=== PATIENT | female | born 1990 | race Two or more races ===

== ENCOUNTER 2018-09-21 07:59 | Inpatient (IN) | payer OTHER ==
[2018-09-21] MEDS ORDERED: Buffered Lidocaine 1% SYRIN* 1 ML/SYRINGE INTRADERM ONE (08:08)
--- NOTE | 2018-09-21 08:14 | HP ---
General Information - Reason for Visit posterm / pt 40 week s and 6 days - General Information Maternal Age: 28 Grav: 1 Para: 0 Estimated Due Date: 09/15/18 Determined By: LMP Gestational Age in Weeks/Days: 40 weeks 6 days Past Medical History Delivery History: See Records Pertinent Past Medical History: Non-Contributory Pertinent Past Surgical History: None Pertinent Family History: Non-Contributory - Antepartal Records Antepartal Records: Reviewed, Uncomplicated Review of Systems Constitutional: Comfortable Genitourinary: No Bleeding, No Leaking Fluid Musculoskeletal: No Complaint Movement: Normal Exam Allergies/Adverse Reactions: Allergies No Known Allergies Allergy (Verified 03/22/16 19:53) - Exam Breast: Breast Exam Deferred Extremities: No Edema Heart: Normal Rhythm/Heart Sounds HEENT: No Significant Findings Lungs: Clear Bilaterally Rectal: Rectal Exam Deferred Reflexes: DTR 2+ Targeted Exam Findings See L&D Outpatient Visit Provider Note for Findings: N/A Estimated Weight: 7.9 lbs Effacement: 80% Station: -1 Presenting Part: Vertex Membrane Status: Intact EFM Findings - External Monitor Findings Baseline Heart Rate: 145 External Monitor Findings: Accelerations Present, Variability Moderate Contractions: Regular, Mild, 45-90 Seconds - contractini too much to give cytotec Assessment/Plan - Assessment post dates for elective induction - Obstetrical Risk Factors Obstetrical Risk Factors: Post-Dates - Plan Plan: Cervical Ripening Plan Comment: Since pt diana frequently . option of pitocin augmentation and home with observation. Cannot examine effectively due to pt ability to tolerate exam since we do not know how long she has been diana and is not quite 41 weeks suggest home with warnings
[2018-09-21] MEDS ORDERED: Misoprostol TAB* 100 MCG PO ONE (08:26)
== END 2018-09-21 09:45 | disposition home or self-care (01) | DRG 833 ==
LOC: MCHOBOUT 07:59 → MCHOB 08:20
PROVIDERS: ADMIT Obstetrics & Gynecology; ATTEND Obstetrics & Gynecology
PROC: 4A1HXCZ Monitoring of Products of Conception, Cardiac Rate, External Approach (ICD-10-PCS; principal; 2018-09-21)
DX: O48.0 Post-term pregnancy (principal); Z3A.40 40 weeks gestation of pregnancy
CPT/HCPCS: S0191

== ENCOUNTER 2018-09-22 11:51 | Inpatient (IN) | payer OTHER ==
[2018-09-22 15:01] LABS: Hematocrit 35 % (33-41); Hemoglobin 11.5 g/dL (12.0-16.0); Mean Corpuscular HGB Conc 33 g/dL (31-36); Mean Corpuscular Hemoglobin 28 pg (27-31); Mean Corpuscular Volume 86 fL (80-97); Mean Platelet Volume 9.1 fL (7.4-10.4); Platelet Count 253 10^3/uL (150-450); Red Blood Count 4.09 10^6 /uL (3.70-4.87); Red Cell Distribution Width 14 % (10.5-15); White Blood Count 11.6 10^3/uL (3.5-10.8)
[2018-09-22] MEDS ORDERED: Lactated Ringers 1000 ML Bag* 1,000 ML IV ONE ×2 (15:12→15:52)
[2018-09-22] MEDS ORDERED: Buffered Lidocaine 1% SYRIN* 1 ML/SYRINGE INTRADERM ONE (15:12)
[2018-09-22] MEDS ORDERED: OBEPIDURAL* 250 ML EPIDURAL ONE (15:15)
--- NOTE | 2018-09-22 15:29 | HP ---
General Information - Reason for Visit labor. Ctx started yesterday but were mild. Woke up a few times overnight with ctxs - now getting more uncomfortable. Was planning induction anyways. - General Information Maternal Age: 28 Grav: 1 Para: 0 SAB: 0 IEA: 0 Estimated Due Date: 09/15/18 Determined By: LMP Gestational Age in Weeks/Days: 41.0 Maternal Blood Type and Rh: B Positive - Results this Serology/RPR Result: Non-Reactive Rubella Result: Immune HBsAg Result: Negative HIV Result: Negative GBS Culture Result: Negative Past Medical History Pertinent Past Medical History: Non-Contributory Pertinent Past Surgical History: None Pertinent Family History: Non-Contributory - Antepartal Records Antepartal Records: Reviewed, Uncomplicated Review of Systems Constitutional: Comfortable CV Complaint: No Respiratory: Shortness of Breath: No Gastrointestinal: No Nausea/Vomiting Genitourinary: No Leaking Fluid, Spotting Musculoskeletal: Contractions - irregular Movement: Normal Exam Allergies/Adverse Reactions: Allergies No Known Allergies Allergy (Verified 03/22/16 19:53) Vital Signs 09/22/18 12:00 Temperature 98.5 F Pulse Rate 84 Respiratory 20 Rate Blood Pressure 115/67 (mmHg) O2 Sat by Pulse 100 Oximetry Lab Values - Entire Visit: Laboratory Tests 09/22/18 14:40 WBC 11.6 H RBC 4.09 Hgb 11.5 L Hct 35 MCV 86 MCH 28 MCHC 33 RDW 14 Plt Count 253 MPV 9.1 - Measurements Height: 5 ft 1 in Weight: 149 lb Weight in lbs: 149.761717 Body Mass Index (BMI): 28.1 Pre- Weight: 120 lb Weight Gained This : 29 lbs and 0 ozs - Exam Breast: Breast Exam Deferred Extremities: No Edema Heart: Normal Rhythm/Heart Sounds HEENT: No Significant Findings - Abdominal Exam Abdomen Exam: Non-Tender - Ultrasound/Biophysical Profile Ultrasound Status: Not Done Targeted Exam Findings Cervical Exam: 4cm Effacement: 90% Station: 0 Presenting Part: Vertex Membrane Status: Bulging EFM Findings - External Monitor Findings Baseline Heart Rate: 145 External Monitor Findings: Accelerations Present, No Pattern of Variable or Late Decelerations, Variability Moderate, Baseline Stable Contractions: None Assessment/Plan - Assessment @41wks in labor. GBS neg. - Obstetrical Risk Factors Obstetrical Risk Factors: Post-Dates - Plan Plan: Admit - Anticipate Vaginal Delivery
[2018-09-22] MEDS ORDERED: Bupivacaine 0.25% SDV PF* 10 ML VIAL INJ ONE (15:31)
[2018-09-22] MEDS ORDERED: EPHEDrine (Pressors)* 50 MG/ML VIAL IV PUSH PRN (15:52)
[2018-09-22] MEDS ORDERED: Famotidine TAB* 20 MG PO PRN (15:52)
[2018-09-22] MEDS ORDERED: Phenylephrine 40 MCG/ML SYRINGE IV PUSH PRN (15:52)
[2018-09-22] MEDS ORDERED: Sodium Citrate/Citric Acid* 15 ML UDC PO PRN (15:52)
[2018-09-22] MEDS ORDERED: Lactated Ringers 1000 ML Bag* 1,000 ML IV SCH ×2 (16:00)
[2018-09-22] MEDS ORDERED: OBEPIDURAL* 250 ML EPIDURAL SCH (16:00)
[2018-09-22] MEDS ORDERED: Lidocaine 2% JELLY* 6 ML JELLY TOPICAL ONE (18:00)
--- NOTE | 2018-09-22 18:10 | PN ---
Progress Note - Progress Note Date of Service: 09/22/18 Note: Cx: AL/0 station. AROM - clear fluid. Pt comfortable with epidural.
[2018-09-22] MEDS ORDERED: Oxytocin in LR* 20 UNITS/1,000 ML BAG IVPB ONE (20:57)
[2018-09-23] MEDS ORDERED: Acetaminophen TAB* 325 MG PO PRN (01:47)
[2018-09-23] MEDS ORDERED: Dibucaine 1% 28.35 GM TUBE PR PRN (01:47)
[2018-09-23] MEDS ORDERED: Witch Hazel PAD* JAR TOPICAL PRN (01:47)
[2018-09-23] MEDS ORDERED: Glycerin ADULT SUPP PR PRN (01:47)
--- NOTE | 2018-09-23 01:57 | PROCNOTE ---
[facility] OB: Delivery Note - Delivery A Date of : 09/23/18 Time of : 00:43 [place] Weight at : 7 lb 6 oz Score 1 Minute: 7 Score 5 Minutes: 9 Gestational Age in Weeks and Days at Delivery: 41 Weeks and 1 Days Delivery Method: Spontaneous Vaginal Labor: Spontaneous Did Patient attempt ?: N/A, No Previous Amniotic Fluid: Clear Estimated Blood Loss: 200 Anesthesia/Analgesia: CEI for Labor Delivered By: Grace Guerra - Nursery Level of Nursery: Regular/Bedside - Perineum Perineal Injury: 3rd Degree Extension Perineal Repair: By Delivering Practioner - Events Delivery Events of Note: Pitocin Only After Delivery - Additional Delivery Notes Additional Delivery Notes: Pt was originally scheduled for induction but was diana on arrival and progressed spontaneously into labor. She received an epidural and progressed to fully dilated. She pushed ~2.5hrs to deliver the 's head in direct OA position followed by the shoulders and the rest of the body. The baby was placed on mom's abdomen. After >1 min the cord was milked towards the baby, then clamped x2 and cut. The placenta delivered with gentle cord traction and fundal massage. It appeared intact with a 3 vessel cord. A complete 3rd degree laceration was noted. The sphincter muscle was reapproximated overlapping with 4 interrupted sutures of 3-0 vicryl. Then the rest of the repair was done in the usual fashion with 3-0 vircyl rapide. There was a small skin defect near the anus repaired with figure of eight 3-0 vicryl. Rectal exam confirmed no 4th degree extension. At completion of procedure there was good hemostasis and the fundus was firm. Mom and baby stable.
[2018-09-23] MEDS ORDERED: Lactated Ringers 1000 ML Bag* 1,000 ML IV SCH (02:00)
[2018-09-23] MEDS ORDERED: Lidocaine 1% INJ* 10 MG/ML 30 ML SDV ONE (04:20)
[2018-09-23] MEDS ORDERED: Simethicone TAB* 80 MG TAB.CHEW PO SCH (08:30)
[2018-09-23] MEDS: Docusate CAP* 100 MG PO SCH ×3 (09:22→20:52)
[2018-09-23] MEDS: Ibuprofen TAB* 600 MG PO PRN (13:57)
[2018-09-24] MEDS: Ibuprofen TAB* 600 MG PO PRN ×2 (08:49→16:15)
[2018-09-24] MEDS: Docusate CAP* 100 MG PO SCH ×3 (08:49→21:43)
[2018-09-24] MEDS: Ferrous Gluconate TAB* 324 MG TAB PO SCH ×2 (11:30→21:44)
[2018-09-24 11:40] LABS: ABS Basophils 0 10^3/ul (0-0.2); ABS Eosinophils 0.1 10^3/ul (0-0.6); ABS Lymphocytes 1.4 10^3/ul (1.0-4.8); ABS Monocytes 0.7 10^3/ul (0-0.8); ABS Nucleated RBC 0 10^3/ul; Eosinophil % 1.2 %; Hematocrit 28 % (33-41); Hemoglobin 9.5 g/dL (12.0-16.0); Mean Corpuscular HGB Conc 34 g/dL (31-36); Mean Corpuscular Hemoglobin 29 pg (27-31); Mean Corpuscular Volume 85 fL (80-97); Mean Platelet Volume 9.1 fL (7.4-10.4); Nucleated Red Blood Cells % 0.1; Platelet Count 214 10^3/uL (150-450); Red Blood Count 3.31 10^6 /uL (3.70-4.87); Red Cell Distribution Width 14 % (10.5-15); White Blood Count 10.3 10^3/uL (3.5-10.8)
[2018-09-24 22:06] VITALS: BP 105/58
[2018-09-25] MEDS: Ibuprofen TAB* 600 MG PO PRN (08:44)
[2018-09-25] MEDS: Docusate CAP* 100 MG PO SCH (08:44)
[2018-09-25] MEDS: Ferrous Gluconate TAB* 324 MG TAB PO SCH (08:44)
== END 2018-09-25 11:50 | disposition home or self-care (01) | DRG 768 ==
LOC: MCHOBOUT 11:51 → MCHOB 12:20
PROVIDERS: ADMIT Obstetrics & Gynecology; ATTEND Obstetrics & Gynecology
PROC: 10E0XZZ Delivery of Products of Conception, External Approach (ICD-10-PCS; principal; 2018-09-22)
PROC: 0DQR0ZZ Repair Anal Sphincter, Open Approach (ICD-10-PCS; 2018-09-22)
PROC: 0DN Gastrointestinal System, Release (ICD-10-PCS; 2018-09-22)
PROC: 4A1HXCZ Monitoring of Products of Conception, Cardiac Rate, External Approach (ICD-10-PCS; 2018-09-22)
PROC: 3E033VJ Introduction of Other Hormone into Peripheral Vein, Percutaneous Approach (ICD-10-PCS; 2018-09-22)
PROC: 10907ZC Drainage of Amniotic Fluid, Therapeutic from Products of Conception, Via Natural or Artificial Opening (ICD-10-PCS; 2018-09-22)
DX: O48.0 Post-term pregnancy (principal); K62.89 Other specified diseases of anus and rectum; O75.89 Other specified complications of labor and delivery; Z3A.41 41 weeks gestation of pregnancy; Z37.0 Single live birth; O90.81 Anemia of the puerperium; O70.20 Third degree perineal laceration during delivery, unspecified
CPT/HCPCS: 36415; 85025; 85027; 86850; 86900; 86901; A9270-GY; J3490

== ENCOUNTER 2019-05-03 17:35 | Emergency (ER) | payer OTHER ==
[2019-05-03 19:23] LABS: ABS Lymphocytes 0.4 10^3/ul (1.0-4.8); ABS Monocytes 0.3 10^3/ul (0-0.8); Eosinophil % 0.4 %; Hematocrit 41 % (35-47); Hemoglobin 14.3 g/dL (12.0-16.0); Lymphocyte % 4.5 %; Mean Corpuscular HGB Conc 35 g/dL (31-36); Mean Corpuscular Hemoglobin 30 pg (27-31); Mean Corpuscular Volume 86 fL (80-97); Mean Platelet Volume 8.6 fL (7.4-10.4); Platelet Count 232 10^3/uL (150-450); Red Blood Count 4.81 10^6 /uL (3.70-4.87); Red Cell Distribution Width 13 % (10-15); White Blood Count 8.7 10^3/uL (3.5-10.8)
[2019-05-03 19:43] LABS: ALT 10 U/L (7-52); AST 17 U/L (13-39); Albumin 4.5 g/dL (3.2-5.2); Albumin/Globulin Ratio 1.5 (1-3); Alkaline Phosphatase 55 U/L (34-104); Anion Gap 10 mmol/L (2-11); BUN/Creatinine Ratio 22.9 (8-20); Blood Urea Nitrogen 16 mg/dL (6-24); CO2 Carbon Dioxide 24 mmol/L (22-32); Calcium 9.1 mg/dL (8.6-10.3); Chloride 104 mmol/L (101-111); EGFR African American 121.5 (>60); EGFR Non-African American 100.4 (>60); Globulin 3.1 g/dL (2-4); Glucose 90 mg/dL (70-100); Potassium 4.2 mmol/L (3.5-5.0); Sodium 138 mmol/L (135-145); Total Protein 7.6 g/dL (6.4-8.9)
[2019-05-03 20:11] LABS: HCG Pregnancy < 0.60 mIU/mL
[2019-05-03 20:54] VITALS: BP 110/70
== END 2019-05-03 22:40 | disposition left against medical advice (07) ==
LOC: ED 17:35
DX: Z53.21 Procedure and treatment not carried out due to patient leaving prior to being seen by health care provider (principal); R11.10 Vomiting, unspecified
CPT/HCPCS: 36415; 80053; 84702; 85025; 99282